=== PATIENT | female | born 1960 | race Caucasian/White ===

== ENCOUNTER 2016-08-19 09:59 | Outpatient (CLI) ==
[2015-06-23 08:08] VITALS: BMI 46.0
--- NOTE | 2016-08-19 10:55 | CT ---
EXAM: CT sinuses without contrast HISTORY: Sinusitis COMPARISON: None TECHNIQUE: CT sinuses performed without intravenous contrast. Coronal and sagittal reformatted martha ges obtained. FINDINGS: Mastoid air cells clear. Temporal mandibular joints normally aligned. No facial bone fr acture. Globes and retrobulbar structures appear normal. Sphenoid sinuses clear. Minimal mucosal t hickening maxillary sinuses. Ethmoid air cells clear. Right frontal sinus aplastic. Left frontal s inus clear. Mild rightward deviation nasal septum. Ostiomeatal units patent. No air-fluid levels i n the paranasal sinuses. IMPRESSION: Minimal chronic sinusitis.
[2016-08-19 11:01] LABS: BASOPHILS # (AUTO) 0.1 K/uL (0-0.2); BASOPHILS % (AUTO) 0.6 % (0.0-3.0); EOSINOPHILS # (AUTO) 0.2 K/ul (0.0-0.7); EOSINOPHILS % (AUTO) 2.1 % (0.0-7.0); HEMATOCRIT 41.8 % (37.0-47.0); HEMOGLOBIN 14.3 g/dl (12.0-16.0); IMMATURE GRANULOCYTE % (AUTO) 0.5 % (0.0-5.0); LYMPHOCYTES # (AUTO) 2.5 K/uL (0.60-3.4); LYMPHOCYTES % (AUTO) 23.7 (10.0-50.0); MEAN CORPUSCULAR HEMOGLOBIN 29.1 pg (27.0-31.0); MEAN CORPUSCULAR HGB CONC 34.2 (31.8-35.4); MONOCYTES # (AUTO) 0.8 K/uL (0.4-2.0); MONOCYTES % (AUTO) 7.2 (0-10); NEUTROPHILS % (AUTO) 65.9; PLATELET COUNT 190 10^3/uL (140-440); RED BLOOD COUNT 4.92 10^6/ul (4.20-5.40); WHITE BLOOD COUNT 10.56 K/ul (4.6-10.2)
[2016-08-19 11:34] LABS: ALANINE AMINOTRANSFERASE 27 U/L (12-78); ALBUMIN 3.1 g/dL (3.4-5.0); ALBUMIN/GLOBULIN RATIO 0.84; ALKALINE PHOSPHATASE 135 U/L (42-98); ANION GAP 17.3; ASPARTATE AMINO TRANSFERASE 16 U/L (15-37); BILIRUBIN,TOTAL 0.28 mg/dL (0.00-1.20); BLOOD UREA NITROGEN 11 mg/dL (7-18); BUN/CREATININE RATIO 16.92; CALCIUM 9.6 mg/dL (8.2-10.2); CARBON DIOXIDE 28 mmol/L (21-32); CHLORIDE 98 mmol/L (98-107); CREATININE 0.65 mg/dL (0.60-1.30); GLUCOSE 174 mg/dL (70-110); POTASSIUM 3.3 mmol/L (3.5-5.10); SODIUM 140 mmol/L (136-145); TOTAL PROTEIN 6.8 g/dL (6.4-8.2); VITAMIN D25 21 ng/mL (20-50)
== END 2016-08-19 10:00 | disposition home or self-care (01) ==
LOC: RAD 09:59
PROVIDERS: ATTEND Nurse Practitioner
DX: J32.9 Chronic sinusitis, unspecified (principal); E03.9 Hypothyroidism, unspecified; E55.9 Vitamin D deficiency, unspecified; R53.83 Other fatigue; Z79.899 Other long term (current) drug therapy
CPT/HCPCS: 36415; 80053; 82306; 82607; 83036; 84439; 84443; 84481; 85025

== ENCOUNTER 2016-08-30 09:20 | Outpatient (CLI) ==
[2015-06-23 08:08] VITALS: BMI 46.0
== END 2016-08-30 09:21 | disposition home or self-care (01) ==
LOC: LAB 09:20
DX: R05 Cough (principal)
CPT/HCPCS: 87070

== ENCOUNTER 2016-09-28 19:03 | Outpatient (CLI) ==
[2015-06-23 08:08] VITALS: BMI 46.0
== END 2016-09-28 19:04 ==
LOC: AMBL 19:03
PROVIDERS: ATTEND Emergency Medicine
DX: R06.02 Shortness of breath (principal); R00.0 Tachycardia, unspecified; R06.2 Wheezing

== ENCOUNTER 2016-10-26 12:47 | Outpatient (CLI) ==
[2015-06-23 08:08] VITALS: BMI 46.0
== END 2016-10-26 12:48 | disposition home or self-care (01) ==
LOC: CAR 12:47
PROVIDERS: ATTEND Nurse Practitioner
DX: J44.9 Chronic obstructive pulmonary disease, unspecified (principal)

== ENCOUNTER 2016-11-11 08:50 | Outpatient (CLI) | payer OTHER ==
[2015-06-23 08:08] VITALS: BMI 46.0
[2016-11-11 09:19] LABS: BASOPHILS % (AUTO) 0.3 % (0.0-3.0); EOSINOPHILS # (AUTO) 0.2 K/ul (0.0-0.7); EOSINOPHILS % (AUTO) 1.6 % (0.0-7.0); HEMATOCRIT 33.9 % (37.0-47.0); HEMOGLOBIN 11.4 g/dl (12.0-16.0); IMMATURE GRANULOCYTE % (AUTO) 0.6 % (0.0-5.0); LYMPHOCYTES # (AUTO) 1.9 K/uL (0.60-3.4); LYMPHOCYTES % (AUTO) 19.2 (10.0-50.0); MEAN CORPUSCULAR HEMOGLOBIN 28.1 pg (27.0-31.0); MEAN CORPUSCULAR HGB CONC 33.6 (31.8-35.4); MEAN CORPUSCULAR VOLUME 83.7 fl (81.0-99.0); MONOCYTES # (AUTO) 0.8 K/uL (0.4-2.0); MONOCYTES % (AUTO) 7.7 (0-10); NEUTROPHILS % (AUTO) 70.6; PLATELET COUNT 174 10^3/uL (140-440); RED BLOOD COUNT 4.05 10^6/ul (4.20-5.40); WHITE BLOOD COUNT 9.92 K/ul (4.6-10.2)
[2016-11-11 09:50] LABS: ERYTHROCYTE SEDIMENTATION RATE 59 mm/hr (0-20); ESR INTERNAL QC INTERNAL QC VALID
[2016-11-12 10:28] LABS: C-REACTIVE PROTEIN 45.8 mg/L (0.0-4.9)
[2016-11-12 10:29] LABS: ANTI-NUCLEAR ANTIBODY SCREEN Negative (Negative)
== END 2016-11-11 08:51 | disposition home or self-care (01) ==
LOC: LAB 08:50
PROVIDERS: ATTEND Nurse Practitioner
DX: I89.0 Lymphedema, not elsewhere classified (principal); L53.9 Erythematous condition, unspecified; L73.9 Follicular disorder, unspecified; M79.604 Pain in right leg; R60.0 Localized edema
CPT/HCPCS: 36415; 85025; 85651; 86038; 86140

== ENCOUNTER 2016-12-01 10:28 | Outpatient (CLI) | payer OTHER ==
[2015-06-23 08:08] VITALS: BMI 46.0
[2016-12-01 11:27] LABS: ANION GAP 13.8; CREATININE 0.6 mg/dL (0.60-1.30); POTASSIUM 3.8 mmol/L (3.5-5.10)
== END 2016-12-01 10:29 | disposition home or self-care (01) ==
LOC: LAB 10:28
PROVIDERS: ATTEND Nurse Practitioner
DX: E03.9 Hypothyroidism, unspecified (principal); E55.9 Vitamin D deficiency, unspecified; E87.6 Hypokalemia; R73.9 Hyperglycemia, unspecified; Z79.899 Other long term (current) drug therapy
CPT/HCPCS: 36415; 80048; 82306; 83036; 84443; 84481

== ENCOUNTER 2016-12-07 09:28 | Outpatient (CLI) | payer OTHER ==
[2015-06-23 08:08] VITALS: BMI 46.0
--- NOTE | 2016-12-07 10:06 | DI ---
EXAM: Single standing view of the right knee. History: Right knee pain. Findings: No fractures identified. Mild narrowing of the medial and lateral compartments with tiny osteophytes. Impression: No acute fracture. Mild arthritis.
--- NOTE | 2016-12-07 10:06 | DI ---
EXAM: Single standing view of the left knee. History: Left knee pain. Findings: No fractures identified. Mild narrowing of the medial and lateral compartments with tiny osteophytes. Impression: No fractures identified. Mild arthritis.
--- NOTE | 2016-12-07 10:07 | DI ---
EXAM: Three views of the right foot. History: Right foot pain. Comparison: Right foot radiograph 03/04 2011 Findings: Old healed fracture deformity of the fifth metatarsal. No acute fracture or dislocation. Diffuse subcutaneous edema. Mild polyarticular joint space narrowing. Impression: 1. No acute fracture or dislocation. 2. Old healed fracture deformity of the fifth metatarsal. 3. Diffuse subcutaneous edema. 4. Mild polyarticular arthritis.
== END 2016-12-07 09:29 | disposition home or self-care (01) ==
LOC: RAD 09:28
PROVIDERS: ATTEND Nurse Practitioner
DX: M25.561 Pain in right knee (principal); M79.671 Pain in right foot

== ENCOUNTER 2017-03-14 08:08 | Outpatient (CLI) ==
[2015-06-23 08:08] VITALS: BMI 46.0
[2017-03-14 09:35] LABS: BILIRUBIN,URINE Negative (NEGATIVE); KETONES,URINE Negative (NEGATIVE); LEUKOCYTE ESTERASE ,URINE Negative (NEGATIVE); NITRITE,URINE Negative (NEGATIVE); PROTEIN,URINE Negative (NEGATIVE); URINE, BLOOD Negative (NEGATIVE)
[2017-03-14 09:38] LABS: ADD URINE MICROSCOPIC NO
[2017-03-14 11:29] LABS: ERYTHROCYTE SEDIMENTATION RATE 32 mm/hr (0-20); ESR INTERNAL QC INTERNAL QC VALID
[2017-03-15 07:18] LABS: C-REACTIVE PROTEIN 33.3 mg/L (0.0-4.9); RHEUMATOID ARTHRITIS FACTOR 36.8 IU/mL (0.0-13.9)
[2017-03-15 15:16] LABS: A/G RATIO 1.1 (0.7-1.7); ALPHA-1 GLOBULIN 0.3 g/dL (0.0-0.4); ALPHA-2 GLOBULIN 0.7 g/dL (0.4-1.0); BETA GLOBULIN 1.1 g/dL (0.7-1.3); GAMMA GLOBULIN 0.8 g/dL (0.4-1.8); TOTAL GLOBULINS 2.9 g/dL (2.2-3.9)
== END 2017-03-14 08:09 | disposition home or self-care (01) ==
LOC: LAB 08:08
PROVIDERS: ATTEND Internal Medicine Rheumatology
DX: M25.50 Pain in unspecified joint (principal); R79.82 Elevated C-reactive protein (CRP); Z79.899 Other long term (current) drug therapy
CPT/HCPCS: 36415; 81001; 84165; 85651; 86140; 86235; 86430

== ENCOUNTER 2017-03-16 08:27 | Outpatient (CLI) ==
[2015-06-23 08:08] VITALS: BMI 46.0
[2017-03-17 15:15] LABS: % M-SPIKE Not Observed % (Not Observed); 24HR PROTEIN CALCULATED 162 mg/24 hr (30-150); TOTAL PROTEIN URINE 5.5 mg/dL (Not Estab.); URINE ALBUMIN 14.2 % (.); URINE ALPHA-1 GLOBULIN 5.3 % (.); URINE ALPHA-2 GLOBULIN 18.3 % (.); URINE BETA GLOBULIN 22.1 % (.); URINE GAMMA GLOBULIN 40.1 % (.)
== END 2017-03-16 08:28 | disposition home or self-care (01) ==
LOC: LAB 08:27
PROVIDERS: ATTEND Internal Medicine Rheumatology
DX: M25.50 Pain in unspecified joint (principal); R79.82 Elevated C-reactive protein (CRP)
CPT/HCPCS: 81050

== ENCOUNTER 2017-06-10 11:13 | Outpatient (CLI) ==
[2015-06-23 08:08] VITALS: BMI 46.0
== END 2017-06-10 11:14 | disposition home or self-care (01) ==
LOC: LAB 11:13
PROVIDERS: ATTEND Nurse Practitioner
DX: E87.6 Hypokalemia (principal)
CPT/HCPCS: 36415; 84132

== ENCOUNTER 2017-09-13 10:35 | Outpatient (CLI) | payer OTHER ==
[2015-06-23 08:08] VITALS: BMI 46.0
== END 2017-09-13 10:36 | disposition home or self-care (01) ==
LOC: LAB 10:35
PROVIDERS: ATTEND Nurse Practitioner
DX: E03.9 Hypothyroidism, unspecified (principal); E11.9 Type 2 diabetes mellitus without complications; E55.9 Vitamin D deficiency, unspecified; E87.6 Hypokalemia; R79.0 Abnormal level of blood mineral
CPT/HCPCS: 36415; 80048; 82306; 83036; 83735; 84443

== ENCOUNTER 2017-10-13 11:40 | Outpatient (CLI) | payer OTHER ==
[2015-06-23 08:08] VITALS: BMI 46.0
== END 2017-10-13 11:41 | disposition home or self-care (01) ==
LOC: LAB 11:40
PROVIDERS: ATTEND Nurse Practitioner
DX: E87.6 Hypokalemia (principal); R79.0 Abnormal level of blood mineral
CPT/HCPCS: 36415; 80048; 83735

== ENCOUNTER 2017-11-15 07:48 | Outpatient (CLI) | payer OTHER ==
[2015-06-23 08:08] VITALS: BMI 46.0
== END 2017-11-15 07:49 | disposition home or self-care (01) ==
LOC: LAB 07:48
PROVIDERS: ATTEND Nurse Practitioner
DX: E03.9 Hypothyroidism, unspecified (principal); E87.6 Hypokalemia; Z79.899 Other long term (current) drug therapy
CPT/HCPCS: 36415; 84132; 84443

== ENCOUNTER 2018-01-17 07:45 | Outpatient (CLI) ==
[2015-06-23 08:08] VITALS: BMI 46.0
== END 2018-01-17 07:46 | disposition home or self-care (01) ==
LOC: LAB 07:45
PROVIDERS: ATTEND Nurse Practitioner
DX: E03.9 Hypothyroidism, unspecified (principal); E11.9 Type 2 diabetes mellitus without complications; E55.9 Vitamin D deficiency, unspecified; E87.6 Hypokalemia; Z79.899 Other long term (current) drug therapy
CPT/HCPCS: 36415; 80048; 82306; 83036; 84443

== ENCOUNTER 2018-07-24 14:47 | Outpatient (CLI) ==
[2015-06-23 08:08] VITALS: BMI 46.0
== END 2018-07-24 14:48 | disposition home or self-care (01) ==
LOC: CAR 14:47
PROVIDERS: ATTEND Psychiatry & Neurology Sleep Medicine
DX: G47.33 Obstructive sleep apnea (adult) (pediatric) (principal)
CPT/HCPCS: 95811

== ENCOUNTER 2018-10-24 10:51 | Outpatient (CLI) ==
[2015-06-23 08:08] VITALS: BMI 46.0
== END 2018-10-24 10:52 | disposition home or self-care (01) ==
LOC: LAB 10:51
PROVIDERS: ATTEND Nurse Practitioner
DX: E03.9 Hypothyroidism, unspecified (principal); Z79.899 Other long term (current) drug therapy
CPT/HCPCS: 36415; 84443